=== PATIENT | male | born 1950 | race Caucasian/White ===

== ENCOUNTER → 2016-12-02 | Outpatient (CLI) | payer BC | END | disposition home or self-care (01) | LOC: LAB.O 09:37 | PROVIDERS: ATTEND Nurse Practitioner Family | DX: M06.9 Rheumatoid arthritis, unspecified (principal); Z79.899 Other long term (current) drug therapy ==

== ENCOUNTER → 2017-05-19 | Outpatient (CLI) | payer BC | END | disposition home or self-care (01) | LOC: GMAH 12:30 | PROVIDERS: ATTEND Family Medicine | DX: R68.82 Decreased libido (principal) ==

== ENCOUNTER → 2019-12-10 | Outpatient (CLI) | payer MEDICARE | LOC: GMA MATASK 11:17 | PROVIDERS: ATTEND Family Medicine | DX: Z12.5 Encounter for screening for malignant neoplasm of prostate (principal); I10 Essential (primary) hypertension | CPT/HCPCS: 84443; 84550; G0103 ==

== ENCOUNTER → 2020-04-29 | Outpatient (CLI) | payer MEDICARE | LOC: GMA MATASK 14:16 | PROVIDERS: ATTEND Family Medicine | DX: M05.89 Other rheumatoid arthritis with rheumatoid factor of multiple sites (principal); I10 Essential (primary) hypertension ==